=== PATIENT | female | born 1950 | race African-American/Black ===

== ENCOUNTER 2016-08-19 13:04 | Emergency (ER) | payer MEDICARE ==
[~2016-08-19] VITALS: Ht 160 cm; Wt 122.0 kg
[2016-08-19 15:00] VITALS: BP 175/75
[2016-08-19] MEDS ORDERED: PROMETHAZINE/DEXTROMETHORPHAN 6.25-15MG/5ML BOTTLE 120ML PO PRN (15:15)
== END 2016-08-19 17:02 | disposition home or self-care (01) ==
LOC: ER 14:20
DX: J20.9 Acute bronchitis, unspecified (principal); E11.65 Type 2 diabetes mellitus with hyperglycemia; I10 Essential (primary) hypertension; I48.91 Unspecified atrial fibrillation; Z79.01 Long term (current) use of anticoagulants; Z95.810 Presence of automatic (implantable) cardiac defibrillator; Z88.8 Allergy status to other drugs, medicaments and biological substances
CPT/HCPCS: 71010; 82962; 99283

== ENCOUNTER 2024-11-26 17:44 | Emergency (ER) | payer MEDICARE ==
[~2024-11-26] VITALS: Ht 167.6 cm; Wt 100.0 kg
[~2024-11-26 17:44] MED LIST: ALLO300T2 PO; AMI2 PO; ASPI-1160 PO; BENZ100C86 PO; CLAR10 PO; FURO40TA5 PO; LINA5TAB PO; LIP40 PO; MIDO5TAB4 PO; PANT40TA51 PO; SPIR25TA PO
[2024-11-26 17:45] VITALS: O2SAT 99
[2024-11-26] MEDS: IBUPROFEN 600MG TABLET PO ONE (18:40)
[2024-11-26] MEDS: ACETAMINOPHEN 325MG TABLET PO ONE (18:44)
[2024-11-26] MEDS ORDERED: IBUP-2029 MT (20:18)
[2024-11-26 20:37] VITALS: BP 105/57; PULSE 59; RESP 17; TEMP 36.5; O2SAT 99
== END 2024-11-26 20:58 | disposition home or self-care (01) ==
LOC: ER 17:44
DX: S09.90XA Unspecified injury of head, initial encounter (principal); I48.91 Unspecified atrial fibrillation; E11.9 Type 2 diabetes mellitus without complications; I10 Essential (primary) hypertension; J45.909 Unspecified asthma, uncomplicated; Z88.8 Allergy status to other drugs, medicaments and biological substances; Z79.82 Long term (current) use of aspirin; Z79.899 Other long term (current) drug therapy; Z90.710 Acquired absence of both cervix and uterus; W19.XXXA Unspecified fall, initial encounter; Y93.89 Activity, other specified; Y92.89 Other specified places as the place of occurrence of the external cause; Y99.8 Other external cause status
CPT/HCPCS: 73502; 99284